=== PATIENT | female | born 1980 | race Two or more races ===

== ENCOUNTER 2019-05-11 17:30 | Emergency (ER) | payer SELFPAY ==
[~2019-05-11] VITALS: Ht 165.1 cm; Wt 109.8 kg
--- NOTE | 2019-05-11 17:46 | NUR ---
BIB SELF C/O HIGH BP 190/103, DIZZINESS, HEADACHE, TO ER BED 10, HOOKED TO MONITOR, CHANGED TO HOSP GOWN, PROVIDED W WARM BLANKET, AO x 4, BREATHING EVEN AND UNLABORED. AWAITING MD ELY
--- NOTE | 2019-05-11 18:15 | NUR ---
REGGIE SKAGGS AT BEDSIDE
[2019-05-11] MEDS ORDERED: IV NS 0.9% 1,000 ML BAG IV ONE (18:30)
[2019-05-11 18:54] LABS: BASOPHILS # (AUTO) 0.2 /CMM (0.0-0.2); BASOPHILS % (AUTO) 1.4 % (0.0-2.0); EOSINOPHILS % (AUTO) 1.4 % (0.0-6.0); HEMATOCRIT 40 % (33-45); HEMOGLOBIN 13.4 g/dL (11.5-14.8); LYMPHOCYTES # (AUTO) 3.4 /CMM (0.8-4.8); LYMPHOCYTES % (AUTO) 27.2 % (20.0-44.0); MEAN CORPUSCULAR HGB CONC 33 g/dl (31.0-36.0); MEAN CORPUSCULAR VOLUME 88 fL (82-100); MONOCYTES # (AUTO) 0.7 /CMM (0.1-1.30); MONOCYTES % (AUTO) 5.3 % (2.0-12.0); NEUTROPHILS # (AUTO) 8.1 /CMM (1.8-8.9); NEUTROPHILS % (AUTO) 64.7 % (43.0-81.0); PLATELET COUNT (AUTO) 568 /CMM (150-450); RED BLOOD CELL COUNT(AUTO) 4.62 MIL/uL (4.0-5.2); WHITE BLOOD COUNT (AUTO) 12.5 K/uL (4.3-11.0)
[2019-05-11 19:07] LABS: CALCIUM, SERUM 8.9 mg/dL (8.5-10.1); CREATININE 0.7 mg/dL (0.6-1.3)
--- NOTE | 2019-05-11 19:30 | NUR ---
REPORT GIVEN TO DEANNE CHEEMA FOR RAQUEL
--- NOTE | 2019-05-11 19:34 | NUR ---
SENT TO CT
--- NOTE | 2019-05-11 21:01 | NUR ---
URINE RETRIEVE AND SENT TO LAB
[2019-05-11 21:14] LABS: APPEARANCE,URINE Slightly Cloudy (CLEAR); BILIRUBIN,URINE Negative (NEGATIVE); BLOOD, URINE Small Ery/uL (NEGATIVE); COLOR,URINE Yellow (YELLOW); KETONES,URINE Negative (NEGATIVE); LEUKOCYTE ESTERASE ,URINE Trace (NEGATIVE); NITRITE, URINE Positive (NEGATIVE); PH,URINE 7.5 (5.0-8.0); PROTEIN,URINE Negative (NEGATIVE); UGLUCOSE Negative (NEGATIVE); UROBILINOGEN,URINE 0.2 EU/dL (0.2)
[2019-05-11] MEDS ORDERED: HYDROCHLOROTHIAZIDE 25 MG TABLET ONE (21:23)
[2019-05-11 21:24] LABS: BACTERIA,URINE 2+ /HPF (None Seen); SQUAMOUS EPITHELIAL CELL,UR Moderate /HPF (None Seen)
--- NOTE | 2019-05-11 21:29 | NUR ---
IV removed. Catheter intact and site benign. Pressure and 4x4 applied to site. No bleeding noted. Patient discharged to home in stable condition. Written and verbal after care instructions given. Patient verbalizes understanding of instruction.
[2019-05-11 21:30] VITALS: BP 166/87
[2019-05-11] MEDS ORDERED: HYDROCHLOROTHIAZIDE 25 MG TABLET PO ONE (21:30)
--- NOTE | 2019-05-11 21:30 | NUR ---
PATIENT STATES THAT SHE IS NOT DRIVING AND HER DAUGHTER WILL PICK HER UP.
== END 2019-05-11 21:31 | disposition home or self-care (01) ==
LOC: ER 17:33
DX: I16.0 Hypertensive urgency (principal); R51 Headache; R42 Dizziness and giddiness; E11.9 Type 2 diabetes mellitus without complications
CPT/HCPCS: 36415; 70450; 80048; 81001; 84703; 85025; 87086; 96360; 99284; J7030; 81000-TC